=== PATIENT | female | born 1995 | race Caucasian/White ===

== ENCOUNTER 2022-12-17 18:25 | Emergency (ER) | payer OTHER ==
[2022-12-17] MEDS ORDERED: MORPHINE 2 MG/ML CARPUJECT IVP STA (18:39)
[2022-12-17] MEDS ORDERED: SODIUM CHLORIDE 0.9% 1,000 ML IV STA (18:40)
--- NOTE | 2022-12-17 18:57 | ED Physician Documentation ---
History of Present Illness - Stated complaint Stated Complaint: FEMALE - Chief complaint Chief Complaint: Abd Pain - History obtained from History obtained from: Patient, Family - History of Present Illness Pain level max: 5 Pain level now: 4 - Additonal information Additional information: Patient is a 27-year-old female, 2 para 1 who presents to the emergency department stating that she is visiting from [place]. She had a miscarriage started in [place], started having bleeding 2 days ago and started having heavy bleeding about 2 hours ago. Also having pelvic pain and cramping. Review of Systems Constitutional: denies: Fever, Chills GI: denies: Vomiting, Diarrhea : denies: Dysuria, Frequency, Hesitancy Skin: denies: Rash PD PAST MEDICAL HISTORY - Past Medical History Past Medical History: No - Past Surgical History Past Surgical History: No - Present Medications Home Medications: Ambulatory Orders Medication Instructions Recorded Confirmed Misoprostol [Cytotec] 200 mcg BC ONCE #4 tablet 12/17/22 - Allergies Allergies/Adverse Reactions: Allergies Allergy/AdvReac Type Severity Reaction Status Date / Time No Known Drug Allergies Allergy Verified 12/17/22 18:41 - Living Situation Living Situation: reports: With family Living Arrangement: reports: At home - Social History Does the pt smoke?: No Does the pt have substance abuse?: No - Family History Family history: reports: Non contributory PD ED PE NORMAL - Vitals Vital signs reviewed: Yes - General General: Alert and oriented X 3, No acute distress, Well developed/nourished - HEENT HEENT: PERRL, Moist mucous membranes - Neck Neck: Supple, no meningeal sign - Cardiac Cardiac: RRR, Strong equal pulses - Respiratory Respiratory: No respiratory distress, Clear bilaterally - Abdomen Abdomen: Soft, Non tender, Non distended - Back Back: No CVA TTP, No spinal TTP - Derm Derm: Warm and dry - Extremities Extremities: No edema - Neuro Neuro: Alert and oriented X 3 - Psych Psych: Normal mood, Normal affect Results - Vitals Vitals: Vital Signs - 24 hr 12/17/22 12/17/22 12/17/22 18:37 20:10 21:03 Temperature 36.7 C Heart Rate 94 91 90 Respiratory 20 16 16 Rate Blood Pressure 144/101 H 130/96 H 128/66 O2 Saturation 97 99 100 12/17/22 21:30 Temperature Heart Rate 82 Respiratory 16 Rate Blood Pressure 150/87 H O2 Saturation 100 Oxygen O2 Source Room air - Labs Labs: Laboratory Tests 12/17/22 12/17/22 12/17/22 18:54 18:54 18:54 WBC 8.4 RBC 4.08 L Hgb 12.3 Hct 35.2 L MCV 86.3 MCH 30.1 MCHC 34.9 RDW 12.8 Plt Count 157 MPV 10.3 Neut # (Auto) 6.7 H Lymph # (Auto) 1.1 L [place] # (Auto) 0.4 Eos # (Auto) 0.1 Baso # (Auto) 0.0 Absolute Nucleated RBC 0.00 Nucleated RBC % 0.0 PT INR APTT Sodium 137 Potassium 3.3 L Chloride 106 Carbon Dioxide 22 Anion Gap 9.0 BUN 8 Creatinine 0.6 Estimated GFR (MDRD) 119 Glucose 135 H Calcium 9.3 Total Bilirubin 0.4 AST 12 ALT 8 L Alkaline Phosphatase 45 Total Protein 6.9 Albumin 4.5 Globulin 2.4 Albumin/Globulin Ratio 1.9 Lipase 9 L Beta HCG, Quant 1432.1 Blood Type Blood Type Recheck 12/17/22 12/17/22 12/17/22 18:54 18:54 21:02 WBC RBC Hgb Hct MCV MCH MCHC RDW Plt Count MPV Neut # (Auto) Lymph # (Auto) [place] # (Auto) Eos # (Auto) Baso # (Auto) Absolute Nucleated RBC Nucleated RBC % PT 12.2 INR 1.1 APTT 30.3 Sodium Potassium Chloride Carbon Dioxide Anion Gap BUN Creatinine Estimated GFR (MDRD) Glucose Calcium Total Bilirubin AST ALT Alkaline Phosphatase Total Protein Albumin Globulin Albumin/Globulin Ratio Lipase Beta HCG, Quant Blood Type O NEGATIVE Blood Type Recheck O NEGATIVE - Rads (name of study) Pelvic ultrasound Relevant Findings:: Final report received, See rad report PD Medical Decision Making - ED course Complexity details: reviewed results, re-evaluated patient, considered differential, d/w patient, d/w family, d/w [employer] ax consultant ED course: Patient is a 27-year-old female with a ongoing miscarriage. She initially had heavy vaginal bleeding. Her ultrasound does show continued bleeding with likely retained products of conception. She is Rh-, she received RhoGAM in [place] last week. Her CBC does not show any significant abnormalities. She is not hemodynamically unstable. Consulted OB, Dr. Lancaster, who came and evaluated the patient. Recommends misoprostol. This was given to the patient. We will also prescribe pain medication for home. Patient does not want a D&C at this time. Patient counseled regarding signs and symptoms for which I believe and urgent re-evaluation would be necessary. Patient with good understanding of and agreement to plan and is comfortable going home at this time This document was made in part using voice recognition software. While efforts are made to proofread this document, sound alike and grammatical errors may occur. Departure - Departure Disposition: 01 Home, Self Care Clinical Impression: Miscarriage Condition: Good Instructions: ED Miscarriage Completed Follow-Up: Robert Lancaster MD [Provider Admit Priv/Credential] - Prescriptions: Misoprostol [Cytotec] 200 mcg BC ONCE #4 tablet Comments: You were given misoprostol today and appear to be completing your miscarriage. Please follow up with your OB for further care and return for worsening pain, fevers or bleeding. Forms: PCP List Discharge Date/Time: 12/17/22 21:51
[2022-12-17 19:00] LABS: BASOPHILS % (AUTO) 0.5 %; EOSINOPHILS # (AUTO) 0.1 10^3/uL (0.0-0.7); EOSINOPHILS % (AUTO) 1.4 %; HCT - HEMATOCRIT 35.2 % (37.0-47.0); HGB - HEMOGLOBIN 12.3 g/dL (12.0-16.0); LYMPHOCYTES # (AUTO) 1.1 10^3/uL (1.5-3.5); LYMPHOCYTES % (AUTO) 13.2 %; MEAN CORPUSCULAR HEMOGLOBIN 30.1 pg (27.0-31.0); MEAN CORPUSCULAR HGB CONC 34.9 g/dL (32.0-36.0); MEAN CORPUSCULAR VOLUME 86.3 fL (81.0-99.0); MEAN PLATELET VOLUME 10.3 fL (7.9-10.8); MONOCYTES # (AUTO) 0.4 10^3/uL (0.0-1.0); MONOCYTES % (AUTO) 4.4 %; NEUTROPHILS # (AUTO) 6.7 10^3/uL (1.5-6.6); NEUTROPHILS % (AUTO) 80.3 %; PLT - PLATELET COUNT 157 10^3/uL (130-450); RED BLOOD COUNT 4.08 10^6/uL (4.20-5.40); RED CELL DISTRIBUTION WIDTH 12.8 % (12.0-15.0); WHITE BLOOD COUNT 8.4 x10^3/uL (4.8-10.8)
[2022-12-17 19:08] LABS: INR 1.1 (0.8-1.2); PT - PROTHROMBIN TIME 12.2 secs (9.9-12.6)
[2022-12-17 19:20] LABS: ALBUMIN 4.5 g/dL (3.2-5.5); ALBUMIN/GLOBULIN RATIO 1.9 (1.0-2.2); BILIRUBIN,TOTAL 0.4 mg/dL (0.2-1.0); CALCIUM 9.3 mg/dL (8.5-10.3); CREATININE 0.6 mg/dL (0.6-1.3); PARTIAL THROMBOPLASTIN TIME 30.3 secs (24.9-33.3); POTASSIUM 3.3 mmol/L (3.5-4.5); TOTAL PROTEIN 6.9 g/dL (6.4-8.9)
[2022-12-17] MEDS ORDERED: RHO(D) IMMUNE GLOBULIN 300 MCG SYRINGE IM STA (19:48)
--- NOTE | 2022-12-17 20:14 | CONSULTATION NOTE ---
Surgery Consult - Consult Date Consult Date: 12/17/22 Requesting Provider: Axel Anna MD - Chief Complaint Chief Complaint: Miscarriage - Home Meds/Allergies Allergies/Adverse Reactions: Allergies Allergy/AdvReac Type Severity Reaction Status Date / Time No Known Drug Allergies Allergy Verified 12/17/22 18:41 - Vital Signs Vital Signs: Last Vital Signs Temp 98.1 F 12/17/22 18:37 Pulse 94 12/17/22 18:37 Resp 20 12/17/22 18:37 BP 144/101 H 12/17/22 18:37 Pulse Ox 97 12/17/22 18:37 O2 Flow Rate - Lab Results Result Diagrams: 12/17/22 18:54 12/17/22 18:54 - Consultation Note Consultation Note: HPI: Patient is a 27-year-old -0-0-1 presenting today for incomplete . She is visiting from [place]. She began having some spotting last week. She was seen in the ED and was told she was having a miscarriage. She talk to her OB provider and said that as they have a trip planned, if she felt up to it she could come to [place]. She did receive RhoGAM in the ED. She comes in today as her cramping and bleeding increased. She started passing large clots and is concerned. She has no lightheadedness or dizziness. All other symptoms reviewed and were negative except per HPI. PMH Denies medical issues PSH No prior surgeries SH Denies tobacco, blood, drugs Family History Noncontributory Allergies No known drug allergies Medications No medications Physical exam: General: Alert, oriented, no acute distress Head: Normal cephalic atraumatic Eyes: PERRLA, extraocular motions intact. Respiratory: Normal rate of respiration. No accessory muscle use, normal respiratory effort. Cardiovascular: Regular rate and rhythm Abdomen: Nontender, nondistended Extremities: Normal range of motion Neuro: Oriented x3. Normal movements Psych: Appropriate mood and affect. Normal judgment and insight : Large amount of clot expressed with fundal massage. Speculum exam shows cervix dilated to 1 to 2 cm and a moderate mount of clot removed with ring forcep and swabs. Small amount of bleeding, no hemorrhage likely decidua seen. No discrete tissue. Ultrasound preliminary report showed heterogeneous tissue with no discrete fetus, possible retained products. Labs: H/H: 12.3/35. Plan 19-year-old -0-0-1 at approximately 12 weeks gestation with incomplete Incomplete -Missed : Patient in the process of miscarrying. Bleeding has subsided. Will give a dose of 800 mcg buccal misoprostol and this will likely resolve bleeding. Discussed surgical management, but patient would like to avoid the OR if possible. -Counselled patient that approximately 20% of pregnancies end in miscarriage and that there is nothing that she did or did not do that caused the loss of the . Patient was given bleeding precautions and to return to ED if she soa ks greater than 2 pads and hour for 2 hours. -Patient is vitally and hemodynamically stable. -Will send second dose of misoprostol to pharmacy if bleeding increased tomorrow. -Can follow up with me later this week with questsions or concerns. Has an appointment next week with her primary Collator Operator -Can call womens care if symptoms worsen or return to ED. Rh- -patient already received RhoGAM
[2022-12-17] MEDS ORDERED: miSOPROStoL 200 MCG TABLET BC STA (20:21)
--- NOTE | 2022-12-17 20:29 | Ultrasound Report ---
PROCEDURE: Pelvic w/Doppler Complete INDICATIONS: miscarriage, heavy bleeding TECHNIQUE: Real-time transabdominal scanning was performed of the pelvic organs, with image documentation. Dopp ler interrogation was performed of the ovaries bilaterally. COMPARISON: None available. FINDINGS: Uterus: Uterus measures 12.6 x 5.6 x 6.2 cm. The endometrium is heterogeneously thickened, measuring up to 2.1 cm. There is associated internal vascularity on color Doppler interrogation. Ovaries: The right ovary measures 2.5 x 2 x 2.2 cm, with a calculated ovarian volume of 5.8 cc. The left ovary measures 2 x 1.8 x 1.9 cm, with a calculated ovarian volume of 3.4 cc. Less than 12 fol licles can be seen in each ovary. No adnexal masses. No cystic lesions measuring greater than 3 cm. There is patent arterial and venous flow demonstrated in the ovaries. Other: No pathologic free abdominal or pelvic fluid. IMPRESSION: 1. Heterogeneous thickened endometrium with internal vascularity suggestive of retained products of c onception. Reviewed by: Franklyn Oliver MD on 12/17/2022 8:28 PM PDT Approved by: Franklyn Oilver MD on 12/17/2022 8:28 PM PDT Station ID: [id number]
[2022-12-17] MEDS ORDERED: HYDROcod/ACET 5/325 Prepack 4 PO STA (21:27)
[2022-12-17 21:55] VITALS: BP 150/87
== END 2022-12-17 21:51 | disposition home or self-care (01) ==
LOC: ED 18:25
DX: O03.4 Incomplete spontaneous abortion without complication (principal)
CPT/HCPCS: 36415; 76856; 80053; 83690; 84702; 85025; 85610; 85730; 86900; 86901; 93975; 96374; 99284; A9270